=== PATIENT | male | born 1975 | race Caucasian/White ===

== ENCOUNTER 2019-05-25 09:45 | Emergency (ER) | payer BC ==
--- NOTE | 2019-05-25 10:12 | EDM.PDOC ---
ED HPI GENERAL MEDICAL PROBLEM - General Stated Complaint: COUGH Time Seen by Provider: 05/25/19 09:57 Source of Information: Reports: Patient History Limitations: Reports: No Limitations - History of Present Illness INITIAL COMMENTS - FREE TEXT/NARRATIVE: HISTORY AND PHYSICAL: History of present illness: Patient is a 36-year-old male who presents to the emergency room with complaints of sinus congestion, productive cough and intermittent chills since . He states he has been taking multiple xior-duy-fysfrap products without any relief. Has not been sleeping well due to the coughing keeping him up at night. He denies any tobacco use. No previous lung problems which required rescue inhalers. Patient denies any fever, neck stiffness/pain, headache, change in vision, syncope or near syncope. Denies any chest pain, back pain, or shortness of breath. Denies any abdominal pain, nausea, vomiting, diarrhea, constipation or dysuria. Patient has been eating and drinking appropriately. Review of systems: As per history of present illness and below otherwise all systems reviewed and negative. Past medical history: As per history of present illness and as reviewed below otherwise noncontributory. Surgical history: As per history of present illness and as reviewed below otherwise noncontributory. Social history: See social history for further information Family history: As per history of present illness and as reviewed below otherwise noncontributory. Physical exam: General: Well-developed and well-nourished 36-year-old male. Alert and oriented. Nontoxic appearing and in no acute distress. HEENT: Atraumatic, normocephalic, pupils equal and reactive bilaterally, negative for conjunctival pallor or scleral icterus, mucous membranes moist, TMs normal bilaterally, throat clear, neck supple, nontender, trachea midline. No drooling or trismus noted. No meningeal signs. No hot potato voice noted. Lungs: Poor air exchange to the posterior bases otherwise clear, breath sounds equal bilaterally, chest nontender. Dry nonproductive cough noted. Heart: S1S2, regular rate and rhythm without overt murmur Abdomen: Soft, nondistended, obese, nontender. Skin: Intact, warm, dry. No lesions or rashes noted. Extremities: Atraumatic, moves all extremities per self without difficulty or deficits, negative for cords or calf pain. Neurovascular unremarkable. Neuro: Awake, alert, oriented. Cranial nerves II through XII unremarkable. Cerebellum unremarkable. Motor and sensory unremarkable throughout. Exam nonfocal. Notes: Chest x-ray shows no evidence of pneumonia. Due to patient's symptomatology and harsh cough I am in up with him on a Z-Álvaro and give him some Phenergan with codeine. Medication education and supportive care measures were reviewed and discussed. Voices understanding and is agreeable to plan of care. Denies any further questions or concerns at this time. Diagnostics: Chest x-ray Therapeutics: None Prescription: Zpak Phenergan with codeine Impression: Bronchitis Plan: 1. Take medications as directed. 2. Tylenol and/or ibuprofen as needed for pain and fever management. You may continue to use ijgp-bjd-tbeglue products for symptomatic relief. 3. Follow-up with your primary care provider as we discussed. Return to the ED as needed and as discussed. Definitive disposition and diagnosis as appropriate pending reevaluation and review of above. Chest Pain Score (Numeric/FACES): 4 - Related Data Allergies Allergy/AdvReac Type Severity Reaction Status Date / Time No Known Allergies Allergy Verified 05/25/19 10:09 ED ROS GENERAL - Review of Systems Review Of Systems: ROS reveals no pertinent complaints other than HPI. ED EXAM, GENERAL - Physical Exam Exam: See Below (See dictation) Course - Vital Signs Last Recorded V/S: Last Vital Signs Temp 96.9 F 05/25/19 10:10 Pulse 96 05/25/19 10:58 Resp 20 05/25/19 10:58 BP 132/93 H 05/25/19 10:58 Pulse Ox 95 05/25/19 10:58 Departure - Departure Time of Disposition: 10:51 Disposition: Home, Self-Care 01 Clinical Impression: Bronchitis - Discharge Information Instructions: Acute Bronchitis, Adult, [id number] Referrals: PCP,None [Primary Care Provider] - Forms: ED Department Discharge Additional Instructions: The following information is given to patients seen in the emergency department who are being discharged to home. This information is to outline your options for follow-up care. We provide all patients seen in our emergency department with a follow-up referral. The need for follow-up, as well as the timing and circumstances, are variable depending upon the specifics of your emergency department visit. If you don't have a primary care physician on staff, we will provide you with a referral. We always advise you to contact your personal physician following an emergency department visit to inform them of the circumstance of the visit and for follow-up with them and/or the need for any referrals to a consulting specialist. The emergency department will also refer you to a specialist when appropriate. This referral assures that you have the opportunity for follow-up care with a specialist. All of these measure are taken in an effort to provide you with optimal care, which includes your follow-up. Under all circumstances we always encourage you to contact your private physician who remains a resource for coordinating your care. When calling for follow-up care, please make the office aware that this follow-up is from your recent emergency room visit. If for any reason you are refused follow-up, please contact the [facility] Emergency Department at and asked to speak to the emergency department charge nurse. [facility] [address] [place] [id number] [facility] [address] [place] [id number] 1. Take medications as directed. 2. Tylenol and/or ibuprofen as needed for pain and fever management. You may continue to use jkvn-xij-zsfxzpr products for symptomatic relief. 3. Follow-up with your primary care provider as we discussed. Return to the ED as needed and as discussed.
--- NOTE | 2019-05-25 10:51 | CR ---
EXAMINATION: Two-view chest (PA and Lateral views). HISTORY: Cough. FINDINGS: The trachea is midline. The cardiomediastinal silhouette is within normal limits. No pulmonary infiltrates, effusions or pneumothorax. Osseous structures appear unremarkable. IMPRESSION: No acute cardiopulmonary process.
== END 2019-05-25 10:57 | disposition home or self-care (01) ==
LOC: MW.ED 09:45
DX: J40 Bronchitis, not specified as acute or chronic (principal)
CPT/HCPCS: 71046; 71046-26; 99283-25

== ENCOUNTER 2020-01-20 12:56 | Emergency (ER) | payer OTHER, BC ==
[2020-01-20] MEDS ORDERED: Diphtheria,Pertussis(Acell),Tetanus Vaccine 0.5 ML Syringe IM ONE (13:06)
--- NOTE | 2020-01-20 13:58 | CR ---
Right hand: 3 views of the right hand were obtained. Comparison: No previous study. Soft tissue injury is noted within the 2nd digit. Soft tissue injury also noted within the dorsum of the hand. No fracture, dislocation or other bony abnormality is appreciated. Impression: 1. Soft tissue injury within the 2nd finger. Soft tissue injury also appears to be present within the dorsum of the hand. 2. No acute bony abnormality is appreciated. Diagnostic code #2 This report was dictated in [place] Standard Time
[2020-01-20] MEDS ORDERED: ceFAZolin 1 GM in Premix Bag 1 BAG IV ONE (14:01)
[2020-01-20] MEDS ORDERED: Ondansetron 4 MG/2 ML SDV IVPUSH ONE (14:01)
[2020-01-20] MEDS ORDERED: Sodium Chloride 0.9% 1,000 ML IV ONE (14:01)
[2020-01-20] MEDS ORDERED: Sodium Chloride 0.9% 10 ML Syringe FLUSH PRN (14:01)
[2020-01-20] MEDS ORDERED: Morphine 4 MG/ML Syringe IVPUSH ONE ×2 (14:01→16:49)
[2020-01-20] MEDS ORDERED: Sodium Chloride 0.9% 2.5 ML Syringe FLUSH PRN (14:01)
[2020-01-20 14:55] LABS: BLOOD UREA NITROGEN,BUN 15 mg/dL (7.0-18.0); CARBON DIOXIDE,CO2 27.6 mmol/L (21.0-32.0); CHLORIDE,CL 100 mmol/L (98-107); GLUCOSE RANDOM 192 mg/dL (74-106); POTASSIUM,K 4.3 mmol/L (3.5-5.1); SODIUM,NA 137 mmol/L (136-148)
[2020-01-20] MEDS ORDERED: Lidocaine 2% 5 ML SDV INJECT ONE (15:37)
--- NOTE | 2020-01-20 18:47 | EDM.PDOC ---
ED HPI GENERAL MEDICAL PROBLEM - General Chief Complaint: Laceration Stated Complaint: CUT FINGER Time Seen by Provider: 01/20/20 12:58 Source of Information: Reports: Patient History Limitations: Reports: No Limitations - History of Present Illness INITIAL COMMENTS - FREE TEXT/NARRATIVE: This 44 year old male while working on a 4500 pound valve states that a device gave loose injuring his right index finger. He complains of a deep jagged laceration over the volar aspects of his right index finger with significant loss of soft tissue of the same. He also complains of cutting the dorsal proximal aspects of his right index finger as well. His last meal was at approx 9:30AM which was a hand of chips. He denies any other injuries. Onset: Today Location: Reports: Upper Extremity, Right (right index finger and tendon) Right index Pain Score (Numeric/FACES): 5 - Related Data Allergies Allergy/AdvReac Type Severity Reaction Status Date / Time No Known Allergies Allergy Verified 01/20/20 13:04 Home Meds: Home Meds Lisinopril [Zestril] 10 mg PO DAILY 01/20/20 [History] Simvastatin 1 tab PO DAILY 01/20/20 [History] cephALEXin [Keflex] 500 mg PO Q8H 6 Days #18 cap 01/20/20 [Rx] metFORMIN [Glucophage XR] 1,000 mg PO DAILY 01/20/20 [History] oxyCODONE HCl/Acetaminophen [Percocet 7.5-325 mg Tablet] 1 each PO Q4HR PRN 5 Days #15 tablet 01/20/20 [Rx] Past Medical History HEENT History: Reports: None Cardiovascular History: Reports: High Cholesterol, Hypertension Respiratory History: Reports: None Gastrointestinal History: Reports: None Genitourinary History: Reports: None Musculoskeletal History: Reports: None Neurological History: Reports: None Psychiatric History: Reports: None Endocrine/Metabolic History: Reports: Diabetes, Type II Hematologic History: Reports: None Immunologic History: Reports: None Oncologic (Cancer) History: Reports: None Dermatologic History: Reports: None - Infectious Disease History Infectious Disease History: Reports: Mumps - Past Surgical History Head Surgeries/Procedures: Reports: None HEENT Surgical History: Reports: None Cardiovascular Surgical History: Reports: None Respiratory Surgical History: Reports: None GI Surgical History: Reports: None Male Surgical History: Reports: None Endocrine Surgical History: Reports: None Neurological Surgical History: Reports: None Musculoskeletal Surgical History: Reports: None Oncologic Surgical History: Reports: None Dermatological Surgical History: Reports: None Social & Family History - Family History Family Medical History: Noncontributory - Tobacco Use Smoking Status *Q: Never Smoker Second Hand Smoke Exposure: No - Caffeine Use Caffeine Use: Reports: Coffee, Soda - Recreational Drug Use Recreational Drug Use: No ED ROS GENERAL - Review of Systems Review Of Systems: See Below Constitutional: Reports: No Symptoms HEENT: Reports: No Symptoms Respiratory: Reports: No Symptoms Cardiovascular: Reports: No Symptoms Endocrine: Reports: No Symptoms GI/Abdominal: Reports: No Symptoms : Reports: No Symptoms Musculoskeletal: Reports: Other (severe laceration that is avulsed in areas of the volar aspects of the right index finger.) Skin: Reports: Other (laceration as noted above.) Neurological: Reports: No Symptoms ED EXAM, SKIN/RASH Exam: See Below Exam Limited By: No Limitations General Appearance: Alert, WD/WN, No Apparent Distress Ears: Normal External Exam, Normal Canal, Hearing Grossly Normal, Normal TMs Nose: Normal Inspection, Normal Mucosa, No Blood Head: Atraumatic, Normocephalic Neck: Normal Inspection, Supple, Non-Tender, Full Range of Motion Respiratory/Chest: No Respiratory Distress, Lungs Clear, Normal Breath Sounds, No Accessory Muscle Use, Chest Non-Tender Cardiovascular: Normal Peripheral Pulses, Regular Rate, Rhythm, No Edema, No Gallop, No JVD, No Murmur, No Rub Peripheral Pulses: 3+: Brachial (L), Brachial (R), Radial (L), Radial (R) GI/Abdominal: Normal Bowel Sounds, Soft, Non-Tender, No Organomegaly, No Distention, No Abnormal Bruit, No Mass (Male) Exam: Deferred Rectal (Males) Exam: Deferred Back Exam: Normal Inspection, Full Range of Motion, NT Extremities: Other (Right index finger: 2 inch laceration noted over dorsal aspects from the MP joint to the PIP joint. 2.5 inch jagged laceration noted over the volar aspects of the right index finger extending from the DIP to the MP joint with exposure of the complete laceration of the superficialias tendon on the ulna side. The tendon is exposed on the radial side but intact. Significant soft tissue loss is noted which will make it impossible to completely close the wound. This was discussed with Dr. Oseguera (hand specalist from [place]). I was asked to close as much as I could and he would see him [place] on Saturday. ) ED SKIN PROCEDURES - Laceration/Wound Repair Right Digit - 2nd (Index) Appearance: Irregular, Moderately Contaminated Distal NVT: Neuro & Vascular Intact, Other (injury of the flexor tendon on the unlar side was noted.) Anesthetic Type: Digital Local Anesthesia - Lidocaine (Xylocaine): 2% Plain Local Anesthetic Volume: Other (6.5cc) Skin Prep: Providone-Iodine (Betadine) Saline Irrigation (cc's): 50 (plus the wound was irrigated with betadine solution) Exploration/Debridement/Repair: Wound Explored, Explored to Base, Moderate Debridement, No Foreign Material Found, Wound Margins Revised, Other (After extensive debridement of the wound, the wound was closed as much as possible.) Closed with: Sutures Lac/Wound length In cm: 13 (both laceration areas) Suture Type: Nylon, Interrupted Repaired with: Other (The laceration tendon (flexor) was not repaired as discussed with Dr. Oseguera, the hand surgeon from [place].) Sterile Dressing Applied: Other (As splint was also applied to the right hand as well as the right wrist to prevent movement.) Tetanus Status Addressed: Yes Course - Vital Signs Text/Narrative:: As noted under extremities of the physical exam, the patient has an appointment with Dr. Oseguera in [place]. He will be given Keflex and Percocet for pain. The patient agrees with the discharge plan. A splint was also applied to the right index finger and to the wrist to prevent movement. Last Recorded V/S: Last Vital Signs Temp 97 F 01/20/20 19:30 Pulse 80 01/20/20 19:30 Resp 18 01/20/20 19:30 BP 148/90 H 01/20/20 19:30 Pulse Ox 93 L 01/20/20 19:30 - Orders/Labs/Meds Orders: Active Orders 24 hr Category Date Time Status Vaccines to be Administered [RC] PER UNIT ROUTINE Care 01/20/20 13:06 Active Sodium Chloride 0.9% [Saline Flush] Med 01/20/20 14:01 Active 10 ml FLUSH ASDIRECTED PRN Sodium Chloride 0.9% [Saline Flush] Med 01/20/20 14:01 Active 2.5 ml FLUSH ASDIRECTED PRN Saline Lock Insert [OM.PC] Stat Oth 01/20/20 14:01 Ordered Medication Orders Sodium Chloride (Saline Flush) 10 ml FLUSH ASDIRECTED PRN PRN Reason: Keep Vein Open Last Admin: 01/20/20 14:20 Dose: 10 ml Sodium Chloride (Saline Flush) 2.5 ml FLUSH ASDIRECTED PRN PRN Reason: Keep Vein Open Last Admin: 01/20/20 14:21 Dose: 2.5 ml Labs: Laboratory Tests 01/20/20 01/20/20 01/20/20 Range/Units 14:16 14:16 14:16 WBC 9.67 (4.0-11.0) K/uL RBC 5.14 (4.50-5.90) M/uL Hgb 16.8 (13.0-17.0) g/dL Hct 49.1 (38.0-50.0) % MCV 95.5 (80.0-98.0) fL MCH 32.7 H (27.0-32.0) pg MCHC 34.2 (31.0-37.0) g/dL RDW Std Deviation 43.9 (28.0-62.0) fl RDW Coeff of Jef 13 (11.0-15.0) % Plt Count 208 (150-400) K/uL MPV 10.00 (7.40-12.00) fL Neut % (Auto) 69.4 (48.0-80.0) % Lymph % (Auto) 22.2 (16.0-40.0) % Atkinson % (Auto) 7.0 (0.0-15.0) % Eos % (Auto) 0.9 (0.0-7.0) % Baso % (Auto) 0.5 (0.0-1.5) % Neut # (Auto) 6.7 H (1.4-5.7) K/uL Lymph # (Auto) 2.2 (0.6-2.4) K/uL Atkinson # (Auto) 0.7 (0.0-0.8) K/uL Eos # (Auto) 0.1 (0.0-0.7) K/uL Baso # (Auto) 0.1 (0.0-0.1) K/uL Nucleated RBC % 0.0 /100WBC Nucleated RBCs # 0 K/uL INR 1.00 Sodium 137 (136-148) mmol/L Potassium 4.3 (3.5-5.1) mmol/L Chloride 100 (98-107) mmol/L Carbon Dioxide 27.6 (21.0-32.0) mmol/L BUN 15 (7.0-18.0) mg/dL Creatinine 1.0 (0.8-1.3) mg/dL Est Cr Clr Drug Dosing 98.31 mL/min Estimated GFR (MDRD) > 60.0 ml/min Glucose 192 H (74-106) mg/dL Calcium 10.7 H (8.5-10.1) mg/dL Total Bilirubin 0.6 (0.2-1.0) mg/dL AST 22 (15-37) IU/L ALT 37 (14-63) IU/L Alkaline Phosphatase 89 (46-116) U/L Total Protein 8.0 (6.4-8.2) g/dL Albumin 3.7 (3.4-5.0) g/dL Globulin 4.3 H (2.6-4.0) g/dL Albumin/Globulin Ratio 0.9 (0.9-1.6) Meds: Medications Generic Name Dose Route Start Last Admin Trade Name Freq PRN Reason Stop Dose Admin Sodium Chloride 10 ml 01/20/20 14:01 01/20/20 14:20 Saline Flush FLUSH 10 ml ASDIRECTED PRN Administration Keep Vein Open Sodium Chloride 2.5 ml 01/20/20 14:01 01/20/20 14:21 Saline Flush FLUSH 2.5 ml ASDIRECTED PRN Administration Keep Vein Open Discontinued Medications Generic Name Dose Route Start Last Admin Trade Name Freq PRN Reason Stop Dose Admin Diphtheria/Tetanus/Acell Pertussis 0.5 ml 01/20/20 13:06 01/20/20 13:35 Adacel IM 01/20/20 13:07 0.5 ml .ONCE ONE Administration Cefazolin Sodium/Dextrose 1 gm 50 mls @ 100 mls/hr 01/20/20 14:01 01/20/20 14 :20 / Premix IV 01/20/20 14:30 100 mls/hr ONETIME ONE Administration Sodium Chloride 1,000 mls @ 999 mls/hr 01/20/20 14:01 01/20/20 14:17 Normal Saline IV 01/20/20 15:01 999 mls/hr .Bolus ONE Administration Lidocaine 10 ml 01/20/20 15:37 01/20/20 17:08 Xylocaine-Mpf 2% INJECT 01/20/20 15:38 10 ml ONETIME ONE Administration Morphine Sulfate 4 mg 01/20/20 14:01 01/20/20 14:18 Morphine IVPUSH 01/20/20 14:02 4 mg ONETIME ONE Administration Morphine Sulfate 4 mg 01/20/20 16:49 01/20/20 17:08 Morphine IVPUSH 01/20/20 16:50 4 mg ONETIME ONE Administration Ondansetron HCl 4 mg 01/20/20 14:01 01/20/20 14:18 Zofran IVPUSH 01/20/20 14:02 4 mg ONETIME ONE Administration Departure - Departure Time of Disposition: 19:11 Disposition: Home, Self-Care 01 Condition: Good Clinical Impression: Flexor tendon laceration of finger with open wound Qualifiers: Encounter type: initial encounter Qualified Code(s): S56.129A - Laceration of flexor muscle, fascia and tendon of unspecified finger at forearm level, initial encounter - Discharge Information *PRESCRIPTION DRUG MONITORING PROGRAM REVIEWED*: Yes *COPY OF PRESCRIPTION DRUG MONITORING REPORT IN PATIENT ELOY: Yes Instructions: Sutured Wound Care, [id number] Referrals: PCP,None [Primary Care Provider] - Forms: ED Department Discharge Additional Instructions: The following information is given to patients seen in the emergency department who are being discharged to home. This information is to outline your options for follow-up care. We provide all patients seen in our emergency department with a follow-up referral. The need for follow-up, as well as the timing and circumstances, are variable depending upon the specifics of your emergency department visit. If you don't have a primary care physician on staff, we will provide you with a referral. We always advise you to contact your personal physician following an emergency department visit to inform them of the circumstance of the visit and for follow-up with them and/or the need for any referrals to a consulting specialist. The emergency department will also refer you to a specialist when appropriate. This referral assures that you have the opportunity for follow-up care with a specialist. All of these measure are taken in an effort to provide you with optimal care, which includes your follow-up. Under all circumstances we always encourage you to contact your private physician who remains a resource for coordinating your care. When calling for follow-up care, please make the office aware that this follow-up is from your recent emergency room visit. If for any reason you are refused follow-up, please contact the [facility] Emergency Department at and asked to speak to the emergency department charge nurse. [facility] [address] [place] [address] [facility] [address] [place] [id number] Oseguera [facility] [address] [place] [id number] [phone] [address]. Your appointment with Dr. Oseguera is Saturday (01/22) at 2:50pm in [facility] the Hand and Wrist surgery building. Please arrive 15-20 minutes early with insurance card and photo ID. Sepsis Event Note - Evaluation Sepsis Screening Result: No Definite Risk - Focused Exam Vital Signs: Vital Signs Temp Pulse Resp BP Pulse Ox 01/20/20 19:30 97 F 80 18 148/90 H 93 L 01/20/20 15:26 76 18 147/94 H 94 L 01/20/20 14:46 97 F 78 22 H 140/86 93 L 01/20/20 13:05 97.7 F 97 18 195/121 H 96 Date Exam was Performed: 01/20/20 Time Exam was Performed: 19:42 - My Orders Last 24 Hours: My Active Orders 01/20/20 13:06 Vaccines to be Administered [RC] PER UNIT ROUTINE 01/20/20 14:01 Sodium Chloride 0.9% [Saline Flush] 10 ml FLUSH ASDIRECTED PRN Sodium Chloride 0.9% [Saline Flush] 2.5 ml FLUSH ASDIRECTED PRN Saline Lock Insert [OM.PC] Stat - Assessment/Plan Last 24 Hours: My Active Orders 01/20/20 13:06 Vaccines to be Administered [RC] PER UNIT ROUTINE 01/20/20 14:01 Sodium Chloride 0.9% [Saline Flush] 10 ml FLUSH ASDIRECTED PRN Sodium Chloride 0.9% [Saline Flush] 2.5 ml FLUSH ASDIRECTED PRN Saline Lock Insert [OM.PC] Stat
== END 2020-01-20 20:07 | disposition home or self-care (01) ==
LOC: MW.ED 12:56
DX: S56.121A Laceration of flexor muscle, fascia and tendon of right index finger at forearm level, initial encounter (principal); E78.00 Pure hypercholesterolemia, unspecified; I10 Essential (primary) hypertension; E11.9 Type 2 diabetes mellitus without complications; Z79.84 Long term (current) use of oral hypoglycemic drugs; Z79.899 Other long term (current) drug therapy; Z23 Encounter for immunization; W23.0XXA Caught, crushed, jammed, or pinched between moving objects, initial encounter; Y99.0 Civilian activity done for income or pay
CPT/HCPCS: 12005; 36415; 73130; 80053; 85025; 85610; 90471; 90715; 96361; 96374; 96375; 96376; 99283; J0690; J2001; J2270; J2405; J7030; 12045